=== PATIENT | male | born 1975 | race Two or more races ===

== ENCOUNTER 2020-04-23 22:45 | Emergency (ER) | payer MEDICAID, OTHER ==
[~2020-04-23] VITALS: Ht 188 cm; Wt 104.3 kg
[2020-04-24] MEDS ORDERED: HYDROcodone-ACET 5/325MG TAB PO ONE (01:30)
[2020-04-24] MEDS ORDERED: KETOROLAC TROMETH 60MG/2ML VIAL IM ONE (01:30)
[2020-04-24 01:35] VITALS: BP 125/90
== END 2020-04-24 02:30 | disposition home or self-care (01) ==
LOC: ER 22:48
DX: M54.16 Radiculopathy, lumbar region (principal); M76.31 Iliotibial band syndrome, right leg; M79.10 Myalgia, unspecified site; J45.909 Unspecified asthma, uncomplicated; I10 Essential (primary) hypertension; Z88.0 Allergy status to penicillin
CPT/HCPCS: 72100; 96372; 99283; J1885

== ENCOUNTER 2021-02-22 20:37 | Emergency (ER) | payer MEDICAID ==
[~2021-02-22] VITALS: Ht 188 cm; Wt 113.4 kg
[2021-02-22] MEDS ORDERED: IPRATROPIUM BROM 0.5 MG/2.5ML INH SOL NEB ONE (23:00)
[2021-02-22] MEDS ORDERED: ALBUTEROL SULF 2.5 MG/0.5ML(0.5%) NEB SOLN NEB ONE (23:00)
[2021-02-22 23:50] VITALS: BP 164/98
== END 2021-02-22 23:57 | disposition home or self-care (01) ==
LOC: ER 20:39
DX: J45.909 Unspecified asthma, uncomplicated (principal); I10 Essential (primary) hypertension; Z76.0 Encounter for issue of repeat prescription; Z88.0 Allergy status to penicillin
CPT/HCPCS: 94640; 99283; J7644